=== PATIENT | female | born 1975 | race Two or more races ===

== ENCOUNTER 2020-02-21 09:38 | Emergency (ER) | payer OTHER ==
[~2020-02-21] VITALS: Ht 152.4 cm; Wt 62.3 kg
[~2020-02-21 09:38] MED LIST: ALBUTEROL SULF8.5 GM INH; LEVAQUIN750 MG PO; MUCINEX600 MG PO; NASONEX NASAL S17 GM NS; SINGULAIR10 MG PO
[2020-02-21 09:51] VITALS: Ht 152.4 cm; Wt 62.3 kg
[2020-02-21] MEDS ORDERED: CYCLOBENZAPRINE10 MG PO (11:13)
[2020-02-21] MEDS ORDERED: NAPROSYN500 MG PO (11:13)
[2020-02-21 11:23] VITALS: BP 122/86
== END 2020-02-21 11:23 | disposition home or self-care (01) ==
LOC: D.ER 09:38
DX: S16.1XXA Strain of muscle, fascia and tendon at neck level, initial encounter (principal); S29.012A Strain of muscle and tendon of back wall of thorax, initial encounter; V89.2XXA Person injured in unspecified motor-vehicle accident, traffic, initial encounter; Y93.9 Activity, unspecified; Y92.9 Unspecified place or not applicable

== ENCOUNTER 2020-03-05 14:09 | Emergency (ER) | payer OTHER ==
[~2020-03-05] VITALS: Ht 152.4 cm; Wt 62.7 kg
[~2020-03-05 14:09] MED LIST changes: +CYCLOBENZAPRINE10 MG PO; +NAPROSYN500 MG PO
[2020-03-05 14:23] VITALS: Ht 152.4 cm; Wt 62.7 kg
[2020-03-05 16:55] VITALS: BP 119/70
== END 2020-03-05 16:55 | disposition home or self-care (01) ==
LOC: D.ER 14:09
DX: R07.81 Pleurodynia (principal); X58.XXXA Exposure to other specified factors, initial encounter

== ENCOUNTER 2021-02-01 15:29 | Emergency (ER) | payer OTHER ==
[~2021-02-01] VITALS: Ht 152.4 cm; Wt 66.4 kg
[2021-02-01 15:34] VITALS: Ht 152.4 cm; Wt 66.4 kg
[2021-02-01 15:52] LABS: BASOPHILS 0.3 % (0-2); EOSINOPHILS 0.8 % (0-7); HEMATOCRIT 37.2 % (36.0-48.0); HEMOGLOBIN 12.8 g/dL (12-16); IMMATURE GRANULOCYTES 0.3 % (0-5); LYMPHOCYTE ABS# 2.17 10x3/uL (1.18-3.74); LYMPHOCYTES 30.7 % (15-50); MCH 29.8 pg (26.0-34.0); MCHC 34.4 g/dL (31.0-37.0); MCV 86.5 fL (80.0-100.0); MEAN PLATELET VOLUME 12.9 fL (7.4-10.4); MONOCYTES 8.2 % (2-11); NEUTROPHIL ABS# 4.22 10x3/uL (1.56-6.13); NEUTROPHILS 59.7 % (40-80); PLATELET COUNT 279 10x3/uL (130-400); RDW 13.3 % (11.5-14.5); WBC 7.1 10x3/uL (4.8-10.8)
[2021-02-01 16:02] LABS: INR 1.06 (0.85-1.17); PROTIME 12.7 SECONDS (11.6-15.0)
[2021-02-01 16:03] LABS: APTT 35.2 SECONDS (22.8-39.4)
[2021-02-01 16:09] LABS: CALC OSMOLALITY 276 mosm/kg (275-300); CALCIUM 9.1 mg/dL (8.5-10.1); CARBON DIOXIDE 25.4 mmol/L (21.0-32.0); CHLORIDE - SERUM 102 mmol/L (98-107); CREATININE - SERUM 0.9 mg/dL (0.6-1.3); GLUCOSE 86 mg/dL (74-106); POTASSIUM - SERUM 3.7 mmol/L (3.5-5.1); SODIUM 138 mmol/L (136-145); UREA NITROGEN 17 mg/dL (7-18); eGFR NON AFRICAN AMERICAN 71 mL/min (90-120)
[2021-02-01 16:38] LABS: ALBUMIN 3.9 g/dL (3.4-5.0); ALKALINE PHOSPHATASE 91 U/L (30-120); ALT (SGPT) 25 U/L (10-68); BILIRUBIN - TOTAL 0.74 mg/dL (0.2-1.3); CKMB 0.8 U/L (0.0-3.6); CREATINE KINASE 107 UL (21-215); MAGNESIUM - SERUM 1.9 mg/dL (1.8-2.4)
[2021-02-01 16:47] LABS: TROPONIN-I < 0.017 ng/mL (0.000-0.060)
[2021-02-01 21:18] VITALS: BP 136/84
== END 2021-02-02 02:01 | disposition home or self-care (01) ==
LOC: D.ER 15:29
PROVIDERS: Family Medicine
DX: R07.9 Chest pain, unspecified (principal)